=== PATIENT | female | born 1980 | race American Indian/Alaskan Native ===

== ENCOUNTER 2016-05-17 13:42 | Emergency (ER) | payer MEDICAID, OTHER ==
[2016-05-17 15:49] VITALS: BP 149/96
[2016-05-17] MEDS ORDERED: Ketorolac 60 MG/2 ML SDV IM ONE (16:09)
[2016-05-17] MEDS ORDERED: LORazepam 2 MG/ML MDV IM ONE (16:09)
--- NOTE | 2016-05-17 16:12 | EDM.PDOC ---
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 which may have exacerbated her back pain.she denies any fevers loss of bowel or bladder - Related Data Allergies/ADRs: Allergies Allergy/AdvReac Type Severity Reaction Status Date / Time codeine phosphate Allergy Swollen Verified 01/12/16 22:00 [From Tylenol-Codeine #3] Eyes Home Meds: Home Meds Ibuprofen 800 mg PO TID 04/06/14 [History] Levothyroxine Sodium [Synthroid] 200 mcg PO DAILY 04/06/14 [History] tiZANidine [Zanaflex] 2 mg PO BEDTIME 04/06/14 [History] traMADol [Ultram] 50 mg PO Q4H PRN 04/06/14 [History] Past Medical History 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 History: Reports: Musculoskeletal History: Reports: Back pain, chronic, Other (see below) Other Musculoskeletal History: dislocated shoulder Neurological History: Reports: Concussion Endocrine/Metabolic History: Reports: Hypothyroidism Oncologic (Cancer) History: Reports: Thyroid - Infectious Disease History Infectious Disease History: Reports: Chicken pox - Past Surgical History Endocrine Surgical History: Reports: Thyroid biopsy, Thyroidectomy Social & Family History - Tobacco Use Smoking Status *Q: Current Every Day Smoker Years of Tobacco use: 10 Packs/Tins Daily: 0.5 Second Hand Smoke Exposure: Yes - Caffeine Use Caffeine Use: Reports: Coffee, Soda - Alcohol Use Days Per Week of Alcohol Use: 0 - Recreational Drug Use Recreational Drug Use: Yes Drug Use in Last 12 Months: Yes Recreational Drug Type: Reports: Marijuana/Hashish Recreational Drug Use Frequency: Weekly Recreational Drug Last Use: couple days ago - Living Situation & Occupation Living situation: Reports: (lives in [place], [place]. with , 3 children, Mom, [id number], and 2 brothers.) ED ROS GENERAL - Review of Systems Review Of Systems: See Below Constitutional: Denies: fever, chills Respiratory: Reports: no symptoms Cardiovascular: Reports: No symptoms GI/Abdominal: Reports: No symptoms Musculoskeletal: Reports: back pain Neurological: Reports: no symptoms ED EXAM,LOWER BACK PAIN/INJURY - Physical Exam Exam: See Below Exam Limited By: No limitations General Appearance: alert, WD/WN, no apparent distress Back Exam: normal inspection, decreased range of motion, muscle spasm, paraspinal tenderness. No: CVA tenderness (R), CVA tenderness (L), vertebral tenderness Extremities: normal inspection, non-tender DTR - Lower Extremities: 2+: knee (R), knee (L) Course - Vital Signs Last Recorded V/S: Last Vital Signs Temp 97.9 F 05/17/16 15:48 Pulse 75 05/17/16 15:48 Resp 18 05/17/16 15:48 BP 149/96 H 05/17/16 15:48 Pulse Ox 97 05/17/16 15:48 - Orders/Labs/Meds Meds: Medications Discontinued Medications Generic Name Dose Route Start Last Admin Trade Name Dulce Maria PRN Reason Stop Dose Admin Hydromorphone HCl 1 mg 05/17/16 17:18 05/17/16 17:31 Dilaudid IM 05/17/16 17:19 1 mg ONETIME ONE Administration Ketorolac Tromethamine 60 mg 05/17/16 16:09 05/17/16 16:33 Toradol IM 05/17/16 16:10 60 mg ONETIME ONE Administration Lorazepam 1 mg 05/17/16 16:09 05/17/16 16:32 Ativan IM 05/17/16 16:10 1 mg ONETIME ONE Administration Departure - Departure Time of Disposition: 18:22 Disposition: Home, Self-Care 01 Condition: good Clinical Impression: Low back pain Qualifiers: Chronicity: chronic Back pain laterality: bilateral Sciatica presence: without sciatica Qualified Code(s): M54.5 - Low back pain; G89.29 - Other chronic pain Forms: ED Department Discharge Additional Instructions: use Percocet as needed for pain control, use Ativan as needed for muscle relaxant, Please followup with your primary care provider in 3-5 days if not better, please call return to the emergency department with worsening of symptoms. - Assessment/Plan Plan: Assessment Acuity = chronic Site and laterality = bilateral low back pain Etiology = unclear etiology Manifestations = none Location of injury = home Lab values = none Plan she had minimal improvement with the Toradol provided significant improvement with IM Dilaudid and Ativan provided, we discharged him with 10 Percocet and 10 ativan Patient was in agreement with the plan all questions were answered, they were instructed to return to the emergency department or call for worsening symptoms. This note was dictated using Lulu voice recognition software please call with any questions.
[2016-05-17] MEDS ORDERED: HYDROmorphone 1 MG/ML Syringe IM ONE (17:18)
== END 2016-05-17 18:40 | disposition home or self-care (01) ==
LOC: JP.ED 13:42
DX: M54.5 Low back pain (principal); G89.29 Other chronic pain; E89.0 Postprocedural hypothyroidism; F17.210 Nicotine dependence, cigarettes, uncomplicated; Z79.899 Other long term (current) drug therapy; Z88.5 Allergy status to narcotic agent; Z85.850 Personal history of malignant neoplasm of thyroid
CPT/HCPCS: 96372; 99283; J1170; J1885; J2060

== ENCOUNTER 2016-08-07 18:48 | Emergency (ER) | payer MEDICAID ==
[2016-08-07 20:01] VITALS: BP 110/72
--- NOTE | 2016-08-07 20:12 | EDM.PDOC ---
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 She thought she might have slept on it incorrectly. Pain and some swelling, especially painful to pronate the hand. Did have some clicking and crepitus earlier. No fall or injury She does do repetitive twisting of the wrist with her job. Reminded her of her wrist pain from a work problem several years ago, she had bilateral wrist braces that she is sleeping with, she could find a right wrist brace but not her left one. She has some pain shooting up into the elbow but to maintain his rate over the left wrist She had a little bit of tingling in a couple of the fingers but that has resolved. left wrist Pain Score (Numeric/FACES): 5 - Related Data Allergies Allergy/AdvReac Type Severity Reaction Status Date / Time codeine phosphate Allergy Swollen Verified 08/07/16 19:52 [From Tylenol-Codeine #3] Eyes Home Meds: Home Meds Ibuprofen 800 mg PO TID 04/06/14 [History] Levothyroxine Sodium [Synthroid] 200 mcg PO DAILY 04/06/14 [History] tiZANidine [Zanaflex] 2 mg PO BEDTIME PRN 04/06/14 [History] Hydrocodone/Acetaminophen [Hydrocodon-Acetaminophen 5-325] 1 - 2 each PO QID PRN #10 tablet 08/07/16 [Rx] Past Medical History HEENT History: Reports: Impaired Vision KIER DRIER History: Reports: Musculoskeletal History: Reports: Back Pain, Chronic Other Musculoskeletal History: dislocated shoulder Neurological History: Reports: Concussion Psychiatric History: Reports: Depression Endocrine/Metabolic History: Reports: Hypothyroidism Oncologic (Cancer) History: Reports: Thyroid - Infectious Disease History Infectious Disease History: Reports: Chicken Pox - Past Surgical History Endocrine Surgical History: Reports: Thyroid Biopsy, Thyroidectomy Social & Family History - Tobacco Use Smoking Status *Q: Current Every Day Smoker Years of Tobacco use: 15 Packs/Tins Daily: 0.5 Second Hand Smoke Exposure: Yes - Caffeine Use Caffeine Use: Reports: Coffee, Soda, Tea - Alcohol Use Days Per Week of Alcohol Use: 0 - Recreational Drug Use Recreational Drug Use: No Drug Use in Last 12 Months: Yes Recreational Drug Type: Reports: Marijuana/Hashish Recreational Drug Use Frequency: Weekly Recreational Drug Last Use: couple days ago - Living Situation & Occupation Living situation: Reports: Review of Systems - Review of Systems Review Of Systems: See Below Constitutional: Reports: No Symptoms Respiratory: Reports: No Symptoms Cardiovascular: Reports: No Symptoms Genitourinary: Reports: No Symptoms Musculoskeletal: Reports: Joint Pain (Left wrist), Joint Swelling (Mild, left wrist), Other (Decreased range of motion left wrist due to pain, some crepitus) Neurological: Reports: Numbness (Very briefly left fingers), Weakness (Left hand because of the pain). Denies: Headache, Difficulty Walking, Change in Speech Psychiatric: Reports: No Symptoms Trauma Exam - Physical Exam Exam: See Below Exam Limited By: No Limitations General Appearance: Reports: Alert, Mild Distress, Other (Normal vital signs) Head: Reports: Atraumatic, Normocephalic Respiratory Exam: Reports: No Respiratory Distress, No Accessory Muscle Use Cardiovascular: Reports: Normal Peripheral Pulses, Regular Rate, Rhythm Extremities: Pain with Movement (Left wrist particularly with supination and even more so pronation, tenderness over the dorsum of the wrist primarily), Tenderness (Left wrist with decreased range of motion mild swelling, no crepitus felt, strength is intact, peripheral capillary refill normal) Neurologic: Reports: No Motor/Sensory Deficits, Alert Skin: Reports: Normal Color, Warm/Dry, Other (No rash) Course - Vital Signs Last Recorded V/S: Last Vital Signs Temp 36.4 C 08/07/16 19:53 Pulse 58 L 08/07/16 19:53 Resp 16 08/07/16 19:53 BP 110/72 08/07/16 19:53 Pulse Ox 97 08/07/16 19:53 - Orders/Labs/Meds Orders: Active Orders 24 hr Category Date Time Status Orthopedic Treatments [RC] ASDIRECTED Care 08/07/16 20:44 Active Wrist Comp Min 3V Lt [CR] Stat Exams 08/07/16 20:06 Taken - Re-Assessments/Exams Free Text/Narrative Re-Assessment/Exam: 08/07/16 20:11 35-year-old female with acute left wrist pain with some swelling Differential diagnoses includes tenosynovitis, tendinitis, carpal tunnel syndrome or other neuropathy, arthritis, and infection. Tenosynovitis is the most likely. X-ray left wrist 08/07/16 20:45 X-rays negative by my interpretation Velcro wrist splint Note for work Prescriptions below She does have ibuprofen 800 mg at home has taken one Departure - Departure Time of Disposition: 20:46 Disposition: Home, Self-Care 01 Condition: good Clinical Impression: Extensor tenosynovitis of left wrist - Discharge Information Prescriptions: Hydrocodone/Acetaminophen [Hydrocodon-Acetaminophen 5-325] 1 - 2 each PO QID PRN #10 tablet PRN Reason: Moderate to severe pain Instructions: Tendinitis and Tenosynovitis-SportsMed Referrals: Caroline Weinberg NP [Primary Care Provider] - Forms: ED Department Discharge, Return to Work/School Form Additional Instructions: Use splint for at least a week, it can be removed for bathing Take ibuprofen 2-3 tablets daily of the 100 mg. He's hydrocodone at nighttime only See your physician/clinic approximately 10 days unless significantly improved - My Orders Last 24 Hours: My Active Orders 08/07/16 20:06 Wrist Comp Min 3V Lt [CR] Stat 08/07/16 20:44 Orthopedic Treatments [RC] ASDIRECTED - Assessment/Plan Last 24 Hours: My Active Orders 08/07/16 20:06 Wrist Comp Min 3V Lt [CR] Stat 08/07/16 20:44 Orthopedic Treatments [RC] ASDIRECTED
--- NOTE | 2016-08-08 08:33 | CR ---
No fracture or dislocation.
== END 2016-08-07 21:08 | disposition home or self-care (01) ==
LOC: JP.ED 18:48
DX: M65.842 Other synovitis and tenosynovitis, left hand (principal); E89.0 Postprocedural hypothyroidism; F32.9 Major depressive disorder, single episode, unspecified; F17.210 Nicotine dependence, cigarettes, uncomplicated; Z79.1 Long term (current) use of non-steroidal anti-inflammatories (NSAID); Z79.899 Other long term (current) drug therapy; Z88.5 Allergy status to narcotic agent; Z85.850 Personal history of malignant neoplasm of thyroid
CPT/HCPCS: 73110-26-LT; 73110-LT; 99284

== ENCOUNTER 2016-08-26 19:54 | Emergency (ER) | payer MEDICAID ==
[2016-08-26 20:29] VITALS: BP 153/99
[2016-08-26] MEDS ORDERED: Ketorolac 60 MG/2 ML SDV IM ONE (21:17)
--- NOTE | 2016-08-26 21:18 | EDM.PDOC ---
ED HPI GENERAL MEDICAL PROBLEM - General Chief Complaint: General Stated Complaint: HIP HURTS NOT AN ACCIDENT Time Seen by Provider: 08/26/16 21:12 Source of Information: Reports: Patient History Limitations: Reports: No Limitations - History of Present Illness INITIAL COMMENTS - FREE TEXT/NARRATIVE: With right hip pain x 3 days. Taking muscle relaxer, heat and Ibuprofen for discomfort. Pain does radiate to mid right calf area. Has been through physical therapy and pain management for ongoing sciatica issues. Last injection in March. Rates pain a 7 at this time. Duration: Intermittent Location: Reports: Lower Extremity, Right, Radiates to (behind knee cap) Quality: Reports: Ache Severity: Mild Improves with: Reports: Medication Worsens with: Reports: Movement Associated Symptoms: Reports: No Other Symptoms Right Hip Pain Score (Numeric/FACES): 8 - Related Data Allergies Allergy/AdvReac Type Severity Reaction Status Date / Time codeine phosphate Allergy Swollen Verified 08/26/16 20:41 [From Tylenol-Codeine #3] Eyes Home Meds: Home Meds Ibuprofen 800 mg PO TID 04/06/14 [History] Levothyroxine Sodium [Synthroid] 200 mcg PO DAILY 04/06/14 [History] tiZANidine [Zanaflex] 2 mg PO BEDTIME PRN 04/06/14 [History] Hydrocodone/Acetaminophen [Hydrocodon-Acetaminophen 5-325] 1 - 2 each PO QID PRN #10 tablet 08/07/16 [Rx] Past Medical History HEENT History: Reports: Impaired Vision [employer]OL[employer] History: Reports: Musculoskeletal History: Reports: Back Pain, Chronic Other Musculoskeletal History: dislocated shoulder Neurological History: Reports: Concussion Psychiatric History: Reports: Depression Endocrine/Metabolic History: Reports: Hypothyroidism Oncologic (Cancer) History: Reports: Thyroid - Infectious Disease History Infectious Disease History: Reports: Chicken Pox - Past Surgical History Endocrine Surgical History: Reports: Thyroid Biopsy, Thyroidectomy Social & Family History - Tobacco Use Smoking Status *Q: Current Every Day Smoker Years of Tobacco use: 11 Packs/Tins Daily: 0.5 Used Tobacco, but Quit: No Second Hand Smoke Exposure: Yes - Caffeine Use Caffeine Use: Reports: Coffee, Soda, Tea - Alcohol Use Days Per Week of Alcohol Use: 0 - Recreational Drug Use Recreational Drug Use: No Drug Use in Last 12 Months: Yes Recreational Drug Type: Reports: Marijuana/Hashish Recreational Drug Use Frequency: Weekly Recreational Drug Last Use: couple days ago - Living Situation & Occupation Living situation: Reports: ED ROS GENERAL - Review of Systems Review Of Systems: See Below Constitutional: Reports: No Symptoms HEENT: Reports: No Symptoms Respiratory: Reports: No Symptoms Cardiovascular: Reports: No Symptoms Endocrine: Reports: No Symptoms Musculoskeletal: Reports: Leg Pain (right hip) Neurological: Reports: No Symptoms ED EXAM, GENERAL - Physical Exam Exam: See Below Exam Limited By: No Limitations General Appearance: Alert, WD/WN, No Apparent Distress Respiratory/Chest: No Respiratory Distress, Lungs Clear, Normal Breath Sounds, No Accessory Muscle Use, Chest Non-Tender Cardiovascular: Normal Peripheral Pulses, Regular Rate, Rhythm, No Edema, No Gallop, No JVD, No Murmur, No Rub Extremities: Normal Inspection, Normal Range of Motion, Non-Tender, Normal Capillary Refill, No Pedal Edema Neurological: Alert, Oriented, CN II-XII Intact, Normal Cognition, Normal Gait, Normal Reflexes, No Motor/Sensory Deficits Psychiatric: Normal Affect, Normal Mood Course - Vital Signs Last Recorded V/S: Last Vital Signs Temp 98.2 F 08/26/16 20:41 Pulse 64 08/26/16 20:41 Resp 20 08/26/16 20:41 BP 153/99 H 08/26/16 20:41 Pulse Ox 98 08/26/16 20:41 Departure - Departure Time of Disposition: 21:19 Disposition: Home, Self-Care 01 Condition: good Clinical Impression: Right hip pain - Discharge Information Forms: ED Department Discharge Additional Instructions: Toradol 60mg IM given today. Pt to continue ice to hip. Note given excusing from work today. Continue stretching. Consider chiropractors and yoga for stretching. Followup if symptoms persist. - Problem List & Annotations (1) Right hip pain SNOMED Code(s): 63345299 Code(s): M25.551 - PAIN IN RIGHT HIP Status: Acute Priority: Low Current Visit: Yes
== END 2016-08-26 21:40 | disposition home or self-care (01) ==
LOC: JP.ED 19:54
DX: M25.551 Pain in right hip (principal); H54.7 Unspecified visual loss; F32.9 Major depressive disorder, single episode, unspecified; E03.9 Hypothyroidism, unspecified; F17.210 Nicotine dependence, cigarettes, uncomplicated; Z79.899 Other long term (current) drug therapy; Z88.5 Allergy status to narcotic agent; Z90.89 Acquired absence of other organs
CPT/HCPCS: 96372; 99283; J1885

== ENCOUNTER 2016-12-14 20:57 | Emergency (ER) | payer MEDICAID ==
[2016-12-14 22:11] VITALS: BP 148/97
[2016-12-14] MEDS ORDERED: Ketorolac 60 MG/2 ML SDV IM ONE (22:36)
--- NOTE | 2016-12-14 22:42 | EDM.PDOC ---
ED HPI GENERAL MEDICAL PROBLEM - General Chief Complaint: Back Pain or Injury Stated Complaint: PAIN NOT AN ACCIDENT Time Seen by Provider: 12/14/16 22:20 Source of Information: Reports: Patient History Limitations: Reports: No Limitations - History of Present Illness INITIAL COMMENTS - FREE TEXT/NARRATIVE: Martine presents tonight with complaints of low back pain after an epidural injection this Saturday. She reports she took her mother shopping at [employer] today and walked around a lot. Onset: Today, Gradual Duration: Hour(s): Location: Reports: Back Quality: Reports: Other (Spasms) Severity: Moderate Improves with: Reports: None Worsens with: Reports: Movement Associated Symptoms: Reports: No Other Symptoms Lower Back Pain Score (Numeric/FACES): 7 - Related Data Allergies Allergy/AdvReac Type Severity Reaction Status Date / Time codeine phosphate Allergy Swollen Verified 08/26/16 20:41 [From Tylenol-Codeine #3] Eyes Home Meds: Home Meds Ibuprofen 800 mg PO TID 04/06/14 [History] Levothyroxine Sodium [Synthroid] 200 mcg PO DAILY 04/06/14 [History] tiZANidine [Zanaflex] 2 mg PO BEDTIME PRN 04/06/14 [History] Past Medical History HEENT History: Reports: Impaired Vision [employer] History: Reports: Musculoskeletal History: Reports: Back Pain, Chronic Other Musculoskeletal History: dislocated shoulder Neurological History: Reports: Concussion Psychiatric History: Reports: Depression Endocrine/Metabolic History: Reports: Hypothyroidism Oncologic (Cancer) History: Reports: Thyroid - Infectious Disease History Infectious Disease History: Reports: Chicken Pox - Past Surgical History Endocrine Surgical History: Reports: Thyroid Biopsy, Thyroidectomy Social & Family History - Family History Family Medical History: Noncontributory - Tobacco Use Smoking Status *Q: Current Every Day Smoker Years of Tobacco use: 10 Packs/Tins Daily: 0.5 Used Tobacco, but Quit: No Second Hand Smoke Exposure: Yes - Caffeine Use Caffeine Use: Reports: Coffee - Alcohol Use Days Per Week of Alcohol Use: 0 Number of Drinks Per Day: 0 Total Drinks Per Week: 0 Date of Last Drink: 11/30/16 - Recreational Drug Use Recreational Drug Use: No Drug Use in Last 12 Months: Yes Recreational Drug Type: Reports: Marijuana/Hashish Recreational Drug Use Frequency: Socially Recreational Drug Last Use: couple days ago - Living Situation & Occupation Living situation: Reports: ED ROS GENERAL - Review of Systems Review Of Systems: See Below Constitutional: Denies: Fever, Chills, Malaise, Weakness, Fatigue Respiratory: Denies: Shortness of Breath, Wheezing, Cough, Sputum, Hemoptysis Cardiovascular: Denies: Chest Pain, Dyspnea on Exertion, Edema, Lightheadedness , Palpitations, PND, Syncope GI/Abdominal: Denies: Abdominal Pain, Black Stool, Bloody Stool, Constipation, Diarrhea, Nausea, Stool Incontinence, Vomiting : Denies: Flank Pain, Frequency, Hematuria, Incontinence, Urgency Musculoskeletal: Reports: Muscle Pain, Muscle Stiffness, Other (Low back pain, muscle spasms) Skin: Reports: No Symptoms Neurological: Denies: Confusion, Dizziness, Headache, Numbness, Paresthesia, Tingling, Tremors, Difficulty Walking, Weakness, Gait Disturbance Psychiatric: Reports: No Symptoms Hematologic/Lymphatic: Reports: No Symptoms Immunologic: Reports: No Symptoms ED EXAM,LOWER BACK PAIN/INJURY - Physical Exam Exam: See Below Text/Narrative:: Martine is an alert, oriented and pleasant 36 year old female presenting with lumbar muscle spasms and pain. Exam Limited By: No Limitations General Appearance: Alert, WD/WN, No Apparent Distress Eye Exam: Bilateral Eye: Normal Fundi, Normal Inspection, PERRL Ears: Normal External Exam, Normal Canal, Hearing Grossly Normal, Normal TMs Nose: Normal Inspection, Normal Mucosa, No Blood Throat/Mouth: Normal Inspection, Normal Lips, Normal Oropharynx, Normal Voice, No Airway Compromise Head: Atraumatic, Normocephalic Neck: Normal Inspection, Supple, Non-Tender, Full Range of Motion. No: Lymphadenopathy (R), Lymphadenopathy (L) Respiratory/Chest: No Respiratory Distress, Lungs Clear, Normal Breath Sounds, No Accessory Muscle Use, Chest Non-Tender Cardiovascular: Normal Peripheral Pulses, Regular Rate, Rhythm, No Edema, No Murmur, No Rub GI/Abdominal: Normal Bowel Sounds, Soft, Non-Tender, No Distention, No Mass Back Exam: Normal Inspection, Full Range of Motion, Decreased Range of Motion, Muscle Spasm. No: CVA Tenderness (R), CVA Tenderness (L), Paraspinal Tenderness , Vertebral Tenderness Extremities: Normal Inspection, Normal Range of Motion, Non-Tender, No Pedal Edema, Normal Capillary Refill Neurological: Alert, Normal Mood/Affect, Normal Dorsiflexion, CN II-XII Intact, Normal Plantar Flexion, Normal Gait, Normal Reflexes, No Motor/Sensory Deficits , Oriented x 3 DTR - Lower Extremities: 1+: Knee (R), Knee (L), Ankle (R), Ankle (L) Psychiatric: Normal Affect, Normal Mood Skin Exam: Warm, Dry, Intact, Normal Color, No Rash Lymphatic: No Adenopathy Course - Vital Signs Last Recorded V/S: Last Vital Signs Temp 36.2 C 12/14/16 22:16 Pulse 74 12/14/16 22:16 Resp 18 12/14/16 22:16 BP 148/97 H 12/14/16 22:16 Pulse Ox 97 12/14/16 22:16 - Orders/Labs/Meds Meds: Medications Discontinued Medications Generic Name Dose Route Start Last Admin Trade Name Dulce Maria PRN Reason Stop Dose Admin Ketorolac Tromethamine 60 mg 12/14/16 22:36 12/14/16 22:43 Toradol IM 12/14/16 22:37 60 mg ONETIME ONE Administration - Re-Assessments/Exams Free Text/Narrative Re-Assessment/Exam: 12/14/16 22:[address] Romero, he agrees with plan. Departure - Departure Time of Disposition: 22:46 Disposition: Home, Self-Care 01 Condition: Good Clinical Impression: Back muscle spasm - Discharge Information Instructions: Muscle Cramps and Spasms, [id number] Referrals: Caroline Weinberg NP [Primary Care Provider] - Forms: ED Department Discharge Additional Instructions: You are suffering from low back muscle spasms. It is best for you to go home, rest and take your muscle relaxant. You were given an IM injection of toradol tonight to assist with pain. Do not take any ibuprofen tonight. Return for worsening, issues or concerns. - Assessment/Plan Assessment:: Back muscle spasms Status post epidural injections 2 days ago Plan: Patient suffering from low back muscle spasms. Go home, rest and take muscle relaxant. She was given an IM injection of toradol tonight to assist with pain and instructed not take any ibuprofen tonight. Return for worsening, issues or concerns.
== END 2016-12-14 22:56 | disposition home or self-care (01) ==
LOC: JP.ED 20:57
DX: M62.830 Muscle spasm of back (principal); E03.9 Hypothyroidism, unspecified; F17.210 Nicotine dependence, cigarettes, uncomplicated; Z79.899 Other long term (current) drug therapy; Z88.5 Allergy status to narcotic agent; Z98.890 Other specified postprocedural states
CPT/HCPCS: 96372; 99283; J1885

== ENCOUNTER 2017-03-01 17:06 | Emergency (ER) | payer MEDICAID ==
[2017-03-01 17:40] VITALS: BP 134/77
[2017-03-01] MEDS ORDERED: Ketorolac 60 MG/2 ML SDV IM ONE (17:56)
--- NOTE | 2017-03-01 18:00 | EDM.PDOC ---
ED HPI GENERAL MEDICAL PROBLEM - General Chief Complaint: Lower Extremity Injury/Pain Stated Complaint: HURT RT KNEE Time Seen by Provider: 03/01/17 17:51 Source of Information: Reports: Patient, RN Notes Reviewed History Limitations: Reports: No Limitations - History of Present Illness INITIAL COMMENTS - FREE TEXT/NARRATIVE: 36-year-old female presents to emergency department today complaint of right knee pain, she has been dealing with sciatica on her left hip and admits to ambulating differently, she was going down the steps today inadvertently twisted her right knee her to pop and now she has difficulty bearing weight on that knee - Related Data Allergies Allergy/AdvReac Type Severity Reaction Status Date / Time codeine phosphate Allergy Swollen Verified 08/26/16 20:41 [From Tylenol-Codeine #3] Eyes Home Meds: Home Meds Ibuprofen 800 mg PO TID 04/06/14 [History] Levothyroxine Sodium [Synthroid] 200 mcg PO DAILY 04/06/14 [History] tiZANidine [Zanaflex] 2 mg PO BEDTIME PRN 04/06/14 [History] Past Medical History HEENT History: Reports: Impaired 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: Musculoskeletal History: Reports: Back Pain, Chronic Other Musculoskeletal History: dislocated shoulder Neurological History: Reports: Concussion Psychiatric History: Reports: Depression Endocrine/Metabolic History: Reports: Hypothyroidism Oncologic (Cancer) History: Reports: Thyroid - Infectious Disease History Infectious Disease History: Reports: Chicken Pox - Past Surgical History Endocrine Surgical History: Reports: Thyroid Biopsy, Thyroidectomy Social & Family History - Family History Family Medical History: Noncontributory - Tobacco Use Smoking Status *Q: Current Every Day Smoker Years of Tobacco use: 11 Packs/Tins Daily: 0.5 Used Tobacco, but Quit: No Second Hand Smoke Exposure: Yes - Caffeine Use Caffeine Use: Reports: Coffee - Alcohol Use Days Per Week of Alcohol Use: 0 Number of Drinks Per Day: 0 Total Drinks Per Week: 0 - Recreational Drug Use Recreational Drug Use: No Drug Use in Last 12 Months: Yes Recreational Drug Type: Reports: Marijuana/Hashish Recreational Drug Use Frequency: Socially Recreational Drug Last Use: couple days ago - Living Situation & Occupation Living situation: Reports: Review of Systems - Review of Systems Review Of Systems: See Below Musculoskeletal: Reports: Joint Pain (Right knee pain) Skin: Reports: No Symptoms Neurological: Reports: No Symptoms ED EXAM, GENERAL - Physical Exam Exam: See Below Free Text/Narrative:: Examination of the right knee I don't appreciate any erythema there is no edema noted she is tender along the medial aspect joint line will not tolerate Abbasi valgus maneuvers or Lockman so therefore exam is limited she has difficulty ambulating favors the left leg Exam Limited By: No Limitations General Appearance: Alert, WD/WN, No Apparent Distress Respiratory/Chest: No Respiratory Distress Course - Vital Signs Last Recorded V/S: Last Vital Signs Temp 98.2 F 03/01/17 17:45 Pulse 69 03/01/17 17:45 Resp 16 03/01/17 17:45 BP 134/77 03/01/17 17:45 Pulse Ox 96 03/01/17 17:45 - Orders/Labs/Meds Orders: Active Orders 24 hr Category Date Time Status Knee 3V Rt [CR] Stat Exams 03/01/17 18:11 Taken DME for Discharge [COMM] Per Unit Routine Oth 03/01/17 19:05 Ordered Meds: Medications Discontinued Medications Generic Name Dose Route Start Last Admin Trade Name Dulce Maria PRN Reason Stop Dose Admin Ketorolac Tromethamine 60 mg 03/01/17 17:56 03/01/17 18:46 Toradol IM 03/01/17 17:57 60 mg ONETIME ONE Administration Departure - Departure Time of Disposition: 19:08 Disposition: Home, Self-Care 01 Condition: Fair Clinical Impression: Right knee pain Qualifiers: Chronicity: acute Qualified Code(s): M25.561 - Pain in right knee - Discharge Information Referrals: Caroline Weinberg NP [Primary Care Provider] - Forms: ED Department Discharge Additional Instructions: Use hydrocodone as needed for pain control in combination with ibuprofen, Please followup with your primary care provider in 3-5 days if not better, please call return to the emergency department with worsening of symptoms. - My Orders Last 24 Hours: My Active Orders 03/01/17 18:11 Knee 3V Rt [CR] Stat 03/01/17 19:05 DME for Discharge [COMM] Per Unit Routine - Assessment/Plan Last 24 Hours: My Active Orders 03/01/17 18:11 Knee 3V Rt [CR] Stat 03/01/17 19:05 DME for Discharge [COMM] Per Unit Routine Plan: Assessment Acuity = acute Site and laterality = right knee strain Etiology = secondary to twisting injury Manifestations = none Location of injury = Home Lab values = x-ray the right knee I did review films myself I cannot appreciate any acute process, the official read from radiology is pending Plan I reviewed films with her she received no relief from the Toradol injection she is placed in a knee immobilizer and crutches provided hydrocodone 1 tablet by mouth 3 times a day when necessary total #8 she is to follow-up with her primary care provider in the next 3-5 days for reevaluation Patient was in agreement with the plan all questions were answered, they were instructed to return to the emergency department or call for worsening symptoms. This note was dictated using [employer] voice recognition software please call with any questions.
--- NOTE | 2017-03-04 08:33 | CR ---
Knee 3V Rt HISTORY: pain, twist FINDINGS: No acute fracture or dislocation is identified. Bony architecture and joint spaces are preserved. S oft tissues are unremarkable. IMPRESSION: No acute right knee abnormality identified.
== END 2017-03-01 19:39 | disposition home or self-care (01) ==
LOC: JP.ED 17:06
DX: M25.561 Pain in right knee (principal); F17.210 Nicotine dependence, cigarettes, uncomplicated; Z88.5 Allergy status to narcotic agent; Z79.899 Other long term (current) drug therapy
CPT/HCPCS: 73562; 96372; 99284; J1885

== ENCOUNTER 2017-07-09 19:20 | Emergency (ER) | payer MEDICAID ==
[2017-07-09 19:31] VITALS: BP 149/95
[2017-07-09] MEDS: Ketorolac 60 MG/2 ML SDV IM ONE (20:48)
[2017-07-09] MEDS: methylPREDNISolone Sodium Succinate 125 MG/2 ML SDV IVPUSH ONE (20:49)
--- NOTE | 2017-07-09 20:56 | EDM.PDOC ---
ED HPI GENERAL MEDICAL PROBLEM - General Chief Complaint: Respiratory Problem Stated Complaint: MEDICAL VIA [place]TH Time Seen by Provider: 07/09/17 20:05 Source of Information: Reports: Patient, RN History Limitations: Reports: No Limitations - History of Present Illness INITIAL COMMENTS - FREE TEXT/NARRATIVE: Shortness of breath with near fainting; this is a 36 year old female arrives via EMS from [facility]. 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 EMS were called, she was given a nebulizer treatment enroute to ER, which greatly improved here breathing and chest discomfort. shortness of breath resolved has concerns of sore throat, cough, may have a bladder infection, also a flare up of chronic low back pain with sciatica. has had upper respiratory symptoms for the past 1-2 weeks. 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 Treatments (given by EMS) sore throat Pain Score (Numeric/FACES): 7 chest tightness Pain Score (Numeric/FACES): 9 - Related Data Allergies Allergy/AdvReac Type Severity Reaction Status Date / Time codeine phosphate Allergy Swollen Verified 07/09/17 19:30 [From Tylenol-Codeine #3] Eyes Home Meds: Home Meds Ibuprofen 800 mg PO TID PRN 04/06/14 [History] Levothyroxine Sodium [Synthroid] 200 mcg PO DAILY 04/06/14 [History] tiZANidine [Zanaflex] 2 mg PO BEDTIME PRN 04/06/14 [History] Nabumetone [Relafen] 500 mg PO BID PRN 07/09/17 [History] Past Medical History HEENT History: Reports: Impaired Vision 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: Musculoskeletal History: Reports: Back Pain, Chronic Other Musculoskeletal History: dislocated shoulder Neurological History: Reports: Concussion Psychiatric History: Reports: Depression Endocrine/Metabolic History: Reports: Hypothyroidism Oncologic (Cancer) History: Reports: Thyroid - Infectious Disease History Infectious Disease History: Reports: Chicken Pox - Past Surgical History Endocrine Surgical History: Reports: Thyroid Biopsy, Thyroidectomy Social & Family History - Family History Family Medical History: Noncontributory - Tobacco Use Smoking Status *Q: Current Every Day Smoker Years of Tobacco use: 15 Packs/Tins Daily: 0.5 Used Tobacco, but Quit: No Second Hand Smoke Exposure: Yes - Caffeine Use Caffeine Use: Reports: Coffee, Energy Drinks, Soda, Tea - Alcohol Use Days Per Week of Alcohol Use: 0 Number of Drinks Per Day: 0 Total Drinks Per Week: 0 - Recreational Drug Use Recreational Drug Use: Yes Drug Use in Last 12 Months: Yes Recreational Drug Type: Reports: Marijuana/Hashish Recreational Drug Use Frequency: Rarely Recreational Drug Last Use: couple days ago - Living Situation & Occupation Living situation: Reports: , with Family (lives in housing behind the [employer]) Occupation: Employed ([employer]) ED ROS GENERAL - Review of Systems Review Of Systems: See Below Constitutional: Reports: Fever, Fatigue HEENT: Reports: Sinus Problem, Throat Pain Respiratory: Reports: Shortness of Breath, Wheezing, Pleuritic Chest Pain, Cough , Sputum (green) Cardiovascular: Reports: No Symptoms Endocrine: Reports: No Symptoms GI/Abdominal: Reports: Abdominal Pain (lower abdominal pain, concerns of UTI) : Reports: Flank Pain Musculoskeletal: Reports: Back Pain (chronic) Skin: Reports: No Symptoms Neurological: Reports: No Symptoms Psychiatric: Reports: No Symptoms Hematologic/Lymphatic: Reports: No Symptoms Immunologic: Reports: No Symptoms ED EXAM, GENERAL - Physical Exam Exam: See Below Exam Limited By: No Limitations General Appearance: Alert, WD/WN, No Apparent Distress Eye Exam: Bilateral Eye: Normal Inspection Ears: Normal External Exam, Normal Canal, Hearing Grossly Normal, Normal TMs Ear Exam: Bilateral Ear: Auricle Normal, Canal Normal, TM normal Nose: Normal Inspection, Normal Mucosa, No Blood Throat/Mouth: Normal Lips, Normal Teeth, Normal Gums, Inflammation (tonsillar, uvula midline) Head: Atraumatic, Normocephalic Neck: Normal Inspection, Supple, Non-Tender, Full Range of Motion Respiratory/Chest: No Respiratory Distress, No Accessory Muscle Use, Wheezing Cardiovascular: Regular Rate, Rhythm, No Edema, No Murmur GI/Abdominal: Normal Bowel Sounds, Soft, Tender (low pelvis) Back Exam: Muscle Spasm Extremities: Normal Inspection, No Pedal Edema, Normal Capillary Refill Neurological: No Motor/Sensory Deficits Psychiatric: Normal Affect, Normal Mood Skin Exam: Warm, Dry, Intact, Normal Color, No Rash Lymphatic: No Adenopathy Course - Vital Signs Last Recorded V/S: Last Vital Signs Temp 35.4 C 07/09/17 19:42 Pulse 77 07/09/17 19:42 Resp 16 07/09/17 19:42 BP 149/95 H 07/09/17 19:42 Pulse Ox 96 07/09/17 19:42 - Orders/Labs/Meds Orders: Active Orders 24 hr Category Date Time Status CULTURE STREP A CONFIRMATION [] Stat Lab 07/09/17 20:34 Results STREP SCRN A RAPID W CULT CONF [RM] Stat Lab 07/09/17 20:31 Ordered UA W/MICROSCOPIC [URIN] Stat Lab 07/09/17 20:31 Ordered Labs: Laboratory Tests 07/09/17 Range/Units 20:36 Urine Color Yellow Urine Appearance Clear Urine pH 7.0 (4.5-8.0) Ur Specific Sod 1.015 (1.008-1.030) Urine Protein Negative (NEGATIVE) mg/dL Urine Glucose (UA) Normal (NEGATIVE) mg/dL Urine Ketones Negative (NEGATIVE) mg/dL Urine Occult Blood Negative (NEGATIVE) Urine Nitrite Negative (NEGATIVE) Urine Bilirubin Negative (NEGATIVE) Urine Urobilinogen Normal (NORMAL) mg/dL Ur Leukocyte Esterase Negative (NEGATIVE) Urine RBC Not seen (0-5) Urine WBC 0-5 (0-5) Ur Epithelial Cells Moderate Amorphous Sediment Not seen Urine Bacteria Moderate Urine Mucus Few Meds: Medications Discontinued Medications Generic Name Dose Route Start Last Admin Trade Name Freq PRN Reason Stop Dose Admin Ketorolac Tromethamine 60 mg 07/09/17 20:32 07/09/17 20:48 Toradol IM 07/09/17 20:33 60 mg ONETIME ONE Administration Methylprednisolone Sodium Succinate 125 mg 07/09/17 20:33 07/09/17 20:49 Solu-Medrol IVPUSH 07/09/17 20:34 125 mg ONETIME ONE Administration - Re-Assessments/Exams Free Text/Narrative Re-Assessment/Exam: 07/09/17 21:01 respiratory infection -IV solumedrol 125mg once acute and chronic low back pain -Toradol 60mg IM rule out UTI -urine pending urine negative leukocytes, ketones, positive WBC, many bacteria rule out strep -rapid strep pending. 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 follow up with Primary Care Provider for recheck in one week, sooner if symptoms worsen. 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 follow up with Primary Care Provider for recheck in one week, sooner if symptoms worsen. - Problem List & Annotations (1) Back muscle spasm SNOMED Code(s): 026564470 Code(s): M62.830 - MUSCLE SPASM OF BACK Status: Acute Priority: Medium Current Visit: Yes (2) Bronchitis SNOMED Code(s): 45127611 Code(s): J40 - BRONCHITIS, NOT SPECIFIED ACUTE OR CHRONIC Status: Acute Priority: Medium Current Visit: Yes (3) Dysuria SNOMED Code(s): 60716940 Code(s): R30.0 - DYSURIA Status: Acute Priority: Medium Current Visit: Yes - Problem List Review Problem List Initiated/Reviewed/Updated: Yes - My Orders Last 24 Hours: My Active Orders 07/09/17 20:31 STREP SCRN A RAPID W CULT CONF [RM] Stat UA W/MICROSCOPIC [URIN] Stat 07/09/17 20:34 CULTURE STREP A CONFIRMATION [RM] Stat - Assessment/Plan Last 24 Hours: My Active Orders 07/09/17 20:31 STREP SCRN A RAPID W CULT CONF [RM] Stat UA W/MICROSCOPIC [URIN] Stat 07/09/17 20:34 CULTURE STREP A CONFIRMATION [RM] Stat Plan: will discharge to home, 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 follow up with Primary Care Provider for recheck in one week, sooner if symptoms worsen.
== END 2017-07-09 21:30 | disposition home or self-care (01) ==
LOC: JP.ED 19:20
DX: J40 Bronchitis, not specified as acute or chronic (principal); M62.830 Muscle spasm of back; F17.210 Nicotine dependence, cigarettes, uncomplicated; Z88.5 Allergy status to narcotic agent; Z79.899 Other long term (current) drug therapy
CPT/HCPCS: 81001; 87081; 87430; 96372; 96374; 99285; J1885; J2930

== ENCOUNTER 2017-10-25 07:16 | Emergency (ER) | payer MEDICAID ==
[2017-10-25 07:37] VITALS: BP 149/99
--- NOTE | 2017-10-25 07:39 | EDM.PDOC ---
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 has had problems of numbness on and off for several years but never lasting this long this particular event has been going on for 5 days she has had some pain shooting up her left arm as well denies any trauma Left Hand Pain Score (Numeric/FACES): 7 - Related Data Allergies Allergy/AdvReac Type Severity Reaction Status Date / Time codeine phosphate Allergy Swollen Verified 10/25/17 07:26 [From Tylenol-Codeine #3] Eyes Home Meds: Home Meds Ibuprofen 800 mg PO TID PRN 04/06/14 [History] Levothyroxine Sodium [Synthroid] 200 mcg PO DAILY 04/06/14 [History] tiZANidine [Zanaflex] 2 mg PO BEDTIME PRN 04/06/14 [History] Nabumetone [Relafen] 500 mg PO BID PRN 07/09/17 [History] Past Medical History HEENT History: Reports: Impaired Vision 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 History: Reports: GERD 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: Musculoskeletal History: Reports: Back Pain, Chronic Other Musculoskeletal History: dislocated shoulder Neurological History: Reports: Concussion Psychiatric History: Reports: Depression Endocrine/Metabolic History: Reports: Hypothyroidism, Obesity/BMI 30+ Oncologic (Cancer) History: Reports: Thyroid - Infectious Disease History Infectious Disease History: Reports: Chicken Pox - Past Surgical History Endocrine Surgical History: Reports: Thyroid Biopsy, Thyroidectomy Social & Family History - Family History Family Medical History: Noncontributory - Tobacco Use Smoking Status *Q: Current Every Day Smoker Years of Tobacco use: 20 Packs/Tins Daily: 0.5 - Caffeine Use Caffeine Use: Reports: Coffee - Recreational Drug Use Recreational Drug Use: Yes Drug Use in Last 12 Months: Yes Recreational Drug Type: Reports: Marijuana/Hashish Recreational Drug Use Frequency: Socially - Living Situation & Occupation Living situation: Reports: , with Family (lives in housing behind the [employer]) Occupation: Employed ([employer]) ED ROS GENERAL - Review of Systems Review Of Systems: See Below Constitutional: Reports: No Symptoms Musculoskeletal: Reports: Hand Pain Skin: Reports: No Symptoms Neurological: Reports: Numbness ED EXAM, GENERAL - Physical Exam Exam: See Below Free Text/Narrative:: Examination left arm she has full range of motion of all digits full range of motion of elbow and wrist there is no specific point tenderness, Deandre's test is negative, Tinel's test is negative Phalen's test negative, complains of numbness and pain in the ulnar distribution Exam Limited By: No Limitations General Appearance: Alert, WD/WN, No Apparent Distress Course - Vital Signs Last Recorded V/S: Last Vital Signs Temp 97.3 F 10/25/17 07:29 Pulse 87 10/25/17 07:29 Resp 18 10/25/17 07:29 BP 149/99 H 10/25/17 07:29 Pulse Ox 97 10/25/17 07:29 Departure - Departure Time of Disposition: 08:01 Disposition: Home, Self-Care 01 Condition: Fair Clinical Impression: Cubital tunnel syndrome on left - Discharge Information Referrals: Caroline Weinberg NP [Primary Care Provider] - Forms: ED Department Discharge, ED Return to Work/School Form - Assessment/Plan Plan: Assessment Acuity = acute Site and laterality = probable cubital tunnel syndrome Etiology = probable repetitive motion injury Manifestations = numbness tingling Location of injury = Home Lab values = none Plan Consultations set up with orthopedic surgery for further evaluation she is placed in a wrist splint with thumb immobilization as well as Zhou wrap around the elbow This note was dictated using [employer]Clipper voice recognition software please call with any questions on syntax or grammar.
== END 2017-10-25 08:24 | disposition home or self-care (01) ==
LOC: JP.ED 07:16
DX: G56.22 Lesion of ulnar nerve, left upper limb (principal); F17.210 Nicotine dependence, cigarettes, uncomplicated; Z88.5 Allergy status to narcotic agent; Z79.899 Other long term (current) drug therapy
CPT/HCPCS: 99283

== ENCOUNTER 2017-11-08 15:32 | Emergency (ER) | payer MEDICAID ==
[2017-11-08 15:47] VITALS: BP 152/103
[2017-11-08] MEDS ORDERED: HYDROmorphone 1 MG/ML Syringe IM ONE (16:01)
--- NOTE | 2017-11-08 16:03 | EDM.PDOC ---
ED HPI GENERAL MEDICAL PROBLEM - General Chief Complaint: Upper Extremity Injury/Pain Stated Complaint: HAND TO SHOULDER NOT AN ACCIDENT Time Seen by Provider: 11/08/17 16:00 Source of Information: Reports: Patient History Limitations: Reports: No Limitations - History of Present Illness INITIAL COMMENTS - FREE TEXT/NARRATIVE: Martine 37-year-old female, history of cubital tunnel syndrome, on gabapentin presents to the emergency department today with worsening left arm pain that extends across her back into her right shoulder since having EMG testing her neurology clinic on Saturday. Patient just finished a course of prednisone 2 days ago as well. Patient has been taking ibuprofen for her pain. Patient denies any chest pain, shortness breath, fever, chills, nausea, vomiting or any recent trauma. Onset: Gradual Duration: Day(s): (3) Left Arm Pain Score (Numeric/FACES): 10 - Related Data Allergies Allergy/AdvReac Type Severity Reaction Status Date / Time codeine phosphate Allergy Swollen Verified 11/08/17 15:52 [From Tylenol-Codeine #3] Eyes Home Meds: Home Meds Ibuprofen 800 mg PO TID PRN 04/06/14 [History] Levothyroxine Sodium [Synthroid] 200 mcg PO DAILY 04/06/14 [History] tiZANidine [Zanaflex] 2 mg PO BEDTIME PRN 04/06/14 [History] Nabumetone [Relafen] 500 mg PO BID PRN 07/09/17 [History] Past Medical History HEENT History: Reports: Impaired Vision 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 History: Reports: GERD 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: Musculoskeletal History: Reports: Back Pain, Chronic Other Musculoskeletal History: dislocated shoulder Neurological History: Reports: Concussion Psychiatric History: Reports: Depression Endocrine/Metabolic History: Reports: Hypothyroidism, Obesity/BMI 30+ Oncologic (Cancer) History: Reports: Thyroid - Infectious Disease History Infectious Disease History: Reports: Chicken Pox - Past Surgical History Endocrine Surgical History: Reports: Thyroid Biopsy, Thyroidectomy Social & Family History - Family History Family Medical History: Noncontributory - Tobacco Use Smoking Status *Q: Light Tobacco Smoker Years of Tobacco use: 10 Packs/Tins Daily: 0.5 - Caffeine Use Caffeine Use: Reports: Coffee - Recreational Drug Use Recreational Drug Use: No - Living Situation & Occupation Living situation: Reports: , with Family (lives in housing behind the [employer]) Occupation: Employed ([employer]) Review of Systems - Review of Systems Review Of Systems: ROS reveals no pertinent complaints other than HPI. ED EXAM, GENERAL - Physical Exam Exam: See Below Exam Limited By: No Limitations General Appearance: Alert, WD/WN, No Apparent Distress Neck: Normal Inspection Respiratory/Chest: No Respiratory Distress, Lungs Clear Cardiovascular: Normal Peripheral Pulses, Regular Rate, Rhythm, No Murmur Peripheral Pulses: 2+: Radial (L), Radial (R) Extremities: Normal Inspection, Limited Range of Motion (Limited range of motion to left arm with increased pain with any lifting of arm past her chest, no rashes, no signs of infection, capillary refill and distal proximal pulses are intact.), Other (Tenderness to left and right trapezius muscle region) Neurological: Alert, Oriented, CN II-XII Intact Psychiatric: Normal Affect, Normal Mood Skin Exam: Warm, Dry, Intact Course - Vital Signs Last Recorded V/S: Last Vital Signs Temp 36.3 C 11/08/17 15:50 Pulse 84 11/08/17 15:50 Resp 16 11/08/17 15:50 BP 152/103 H 11/08/17 15:50 Pulse Ox 99 11/08/17 15:50 Martine 37-year-old female, history of juvenile tunnel syndrome who presents to the emergency department today with worsening left arm pain after having EMG/ neurology testing done of her left arm on Saturday. Please refer to history of present illness and focused exam. Patient arrives here hypertensive is otherwise hemolytically stable. Patient has limited range of motion to her left arm. Patient recently finished a course of prednisone which may also be playing a role in her symptoms as this may be rebound inflammation. I did check patient' s narcotic use on the [place] prescription monitoring program, she has not had any narcotics prescribed since last year. I will send her home with a small supply of [place] as this has worked well for her in the past. I did inform patient that any further narcotics for her arm pain we need to be prescribed by either her neurologist or her primary care provider. Patient was given an injection of Dilaudid here prior to discharge without any adverse effects. Reasons to return to the emergency department were discussed in detail. Patient was agreeable to plan of care and discharged in stable condition with her friend driving. - Orders/Labs/Meds Meds: Medications Discontinued Medications Generic Name Dose Route Start Last Admin Trade Name Dulce Maria PRN Reason Stop Dose Admin Hydromorphone HCl 1 mg 11/08/17 16:01 Dilaudid IM 11/08/17 16:02 ONETIME ONE Departure - Departure Time of Disposition: 16:30 Disposition: Home, Self-Care 01 Condition: Good Clinical Impression: Cubital tunnel syndrome on left Arm pain Qualifiers: Laterality: bilateral Qualified Code(s): M79.601 - Pain in right arm; M79.602 - Pain in left arm - Discharge Information Instructions: Shoulder Pain, Musculoskeletal Pain, Heat Therapy Referrals: Caroline Weinberg NP [Primary Care Provider] - Forms: ED Department Discharge Additional Instructions: Continue taking ibuprofen, 600 mg every 6 hours. You can take the [place] as needed for severe pain. Do not drive or drink alcohol if you take this. Follow-up with neurology on Saturday. Any further pain medications will need to be prescribed by your neurologist or primary care provider. As we discussed, you may need another course of steroids if your symptoms do not improve.
== END 2017-11-08 16:32 | disposition home or self-care (01) ==
LOC: JP.ED 15:32
DX: G56.22 Lesion of ulnar nerve, left upper limb (principal); E66.9 Obesity, unspecified; E03.9 Hypothyroidism, unspecified; F17.210 Nicotine dependence, cigarettes, uncomplicated; Z88.5 Allergy status to narcotic agent; Z79.899 Other long term (current) drug therapy
CPT/HCPCS: 96372; 99283; J1170

== ENCOUNTER 2018-05-19 23:51 | Emergency (ER) | payer MEDICAID ==
[2018-05-20 00:14] VITALS: BP 145/101
[2018-05-20] MEDS ORDERED: Benzonatate 100 MG Cap PO ONE (00:25)
[2018-05-20] MEDS ORDERED: Ketorolac 60 MG/2 ML SDV IM ONE (00:25)
--- NOTE | 2018-05-20 00:30 | EDM.PDOC ---
ED HPI GENERAL MEDICAL PROBLEM - General Chief Complaint: Respiratory Problem Stated Complaint: SCIATIC NERVE PAIN, WHEEZING,COUGH Time Seen by Provider: 05/20/18 00:15 Source of Information: Reports: Patient, Old Records, RN History Limitations: Reports: No Limitations - History of Present Illness INITIAL COMMENTS - FREE TEXT/NARRATIVE: 37 yo female here with a cough and rhinorrhea. No SOB or fever. Is a smoker. Also mentions that her chronic sciatica is worse, has restrictions to who she can see due to a pHx of narcotic abuse. Onset: Gradual Onset Date: 05/19/18 Duration: Day(s): (1), Constant Location: Reports: Face (rhinorrhea), Chest (cough) Quality: Reports: Other (no pain except from her sciatica) Severity: Moderate Improves with: Reports: Medication (sciatica) Worsens with: Reports: Other (unknown) Context: Reports: Other (see HPI) Associated Symptoms: Reports: Cough. 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 carpal tunnel left Neurological History: Reports: Concussion Psychiatric History: Reports: Depression Endocrine/Metabolic History: Reports: Hypothyroidism, Obesity/BMI 30+ Oncologic (Cancer) History: Reports: Thyroid - Infectious Disease History Infectious Disease History: Reports: Chicken Pox - Past Surgical History Endocrine Surgical History: Reports: Thyroid Biopsy, Thyroidectomy Social & Family History - Family History Family Medical History: Noncontributory - Tobacco Use Smoking Status *Q: Light Tobacco Smoker Years of Tobacco use: 15 Packs/Tins Daily: 0.5 - Caffeine Use Caffeine Use: Reports: Coffee, Soda, Tea - Recreational Drug Use Recreational Drug Use: No - Living Situation & Occupation Living situation: Reports: , with Family (lives in housing behind the [facility]) Occupation: Employed ([employer]) ED ROS GENERAL - Review of Systems Review Of Systems: See Below Constitutional: Reports: No Symptoms HEENT: Reports: Rhinitis. Denies: Ear Pain, Throat Pain Respiratory: Reports: Cough. Denies: Shortness of Breath, Wheezing, Pleuritic Chest Pain, Sputum, Hemoptysis Cardiovascular: Reports: No Symptoms GI/Abdominal: Reports: No Symptoms : Reports: No Symptoms Musculoskeletal: Reports: No Symptoms Skin: Reports: No Symptoms Neurological: Reports: Other (sciatica, acute on chronic) ED EXAM, GENERAL - Physical Exam Exam: See Below Exam Limited By: No Limitations General Appearance: Alert, WD/WN, No Apparent Distress Eye Exam: Bilateral Eye: Normal Inspection Ears: Normal External Exam, Normal Canal, Hearing Grossly Normal, Normal TMs Ear Exam: Bilateral Ear: Auricle Normal, Canal Normal, TM normal Nose: No Blood, Clear Rhinorrhea Throat/Mouth: Normal Inspection, Normal Lips, Normal Oropharynx, Normal Voice, No Airway Compromise Head: Atraumatic, Normocephalic Neck: Normal Inspection, Supple, Non-Tender. No: Lymphadenopathy (R), Lymphadenopathy (L) Respiratory/Chest: No Respiratory Distress, Lungs Clear, Normal Breath Sounds, No Accessory Muscle Use Cardiovascular: Regular Rate, Rhythm, No Edema GI/Abdominal: Normal Bowel Sounds, Soft, Non-Tender, No Distention Back Exam: Normal Inspection. No: CVA Tenderness (R), CVA Tenderness (L) Extremities: Normal Inspection, Normal Range of Motion, Non-Tender, No Pedal Edema Neurological: Alert, Oriented, CN II-XII Intact, Normal Cognition, No Motor/ Sensory Deficits Psychiatric: Normal Affect, Normal Mood Skin Exam: Warm, Dry, Intact, Normal Color, No Rash Course - Vital Signs Last Recorded V/S: Last Vital Signs Temp 35.5 C 05/20/18 00:13 Pulse 76 05/20/18 00:13 Resp 18 05/20/18 00:13 BP 145/101 H 05/20/18 00:13 Pulse Ox 98 05/20/18 00:13 - Orders/Labs/Meds Orders: Active Orders 24 hr Category Date Time Status Benzonatate [Tessalon Perles] Med 05/20/18 00:25 Once 200 mg PO ONETIME ONE Ketorolac [Toradol] Med 05/20/18 00:25 Once 60 mg IM ONETIME ONE Departure - Departure Time of Disposition: 00:40 Disposition: Home, Self-Care 01 Condition: Good Clinical Impression: Viral URI with cough Chronic sciatica Qualifiers: Laterality: unspecified laterality Qualified Code(s): M54.30 - Sciatica, unspecified side - Discharge Information *PRESCRIPTION DRUG MONITORING PROGRAM REVIEWED*: No *COPY OF PRESCRIPTION DRUG MONITORING REPORT IN PATIENT YANE: No Instructions: Upper Respiratory Infection, Adult, [id number] Referrals: PCP,None [Primary Care Provider] - Additional Instructions: Use Tessalon perles as directed, may add Robitussin DM or Delsym as needed for further cough reduction. Use acetaminophen for pain relief. Continue home meds. No smoking. Drink ample fluids. F/U with your doctor in the clinic as needed. - My Orders Last 24 Hours: My Active Orders 05/20/18 00:25 Benzonatate [Tessalon Perles] 200 mg PO ONETIME ONE Ketorolac [Toradol] 60 mg IM ONETIME ONE - Assessment/Plan Last 24 Hours: My Active Orders 05/20/18 00:25 Benzonatate [Tessalon Perles] 200 mg PO ONETIME ONE Ketorolac [Toradol] 60 mg IM ONETIME ONE
== END 2018-05-20 01:01 | disposition home or self-care (01) ==
LOC: JP.ED 23:51
DX: J06.9 Acute upper respiratory infection, unspecified (principal); M54.31 Sciatica, right side; E66.9 Obesity, unspecified; E03.9 Hypothyroidism, unspecified; Z79.899 Other long term (current) drug therapy; F17.210 Nicotine dependence, cigarettes, uncomplicated; Z88.5 Allergy status to narcotic agent
CPT/HCPCS: 96372; 99283; A9270; J1885

== ENCOUNTER 2018-10-05 14:24 | Emergency (ER) | payer MEDICAID ==
[2018-10-05 14:55] VITALS: BP 139/82; PULSE 70
--- NOTE | 2018-10-05 15:30 | EDM.PDOC ---
ED HPI GENERAL MEDICAL PROBLEM - General Chief Complaint: Bite:Animal, Insect Stated Complaint: REACTION FROM BUG BITE Time Seen by Provider: 10/05/18 15:31 Source of Information: Reports: Patient History Limitations: Reports: No Limitations - History of Present Illness INITIAL COMMENTS - FREE TEXT/NARRATIVE: pt was bite by a deer fly and she developed swelling in the left eye area. When she got up this am her left eye was so swollen that she could bearly open the eye. She has taken benadryl twic. She is 26 weeks . Onset: Other ( she was bite yesterday. 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 carpal tunnel left Neurological History: Reports: Concussion Psychiatric History: Reports: Depression Endocrine/Metabolic History: Reports: Hypothyroidism, Obesity/BMI 30+ Oncologic (Cancer) History: Reports: Thyroid - Infectious Disease History Infectious Disease History: Reports: Chicken Pox - Past Surgical History Endocrine Surgical History: Reports: Thyroid Biopsy, Thyroidectomy Social & Family History - Family History Family Medical History: Noncontributory - Tobacco Use Smoking Status *Q: Unknown Ever Smoked - Caffeine Use Caffeine Use: Reports: None - Recreational Drug Use Recreational Drug Use: No - Living Situation & Occupation Living situation: Reports: , with Family (lives in housing behind the [employer]) Occupation: Employed ([employer]) ED ROS GENERAL - Review of Systems Review Of Systems: See Below Constitutional: Reports: No Symptoms HEENT: Reports: Other (pt has swelling around the left eye. No hives or other reaction) Respiratory: Reports: No Symptoms Cardiovascular: Reports: No Symptoms Endocrine: Reports: No Symptoms GI/Abdominal: Reports: No Symptoms : Reports: No Symptoms Musculoskeletal: Reports: No Symptoms ED EXAM, ANIMAL BITE - Physical Exam Exam: See Below Text/Narrative:: pt arrived with swelling in the left eye. This has gone down this pm. She has taken 2 doses of benadryl today. Exam Limited By: No Limitations General Appearance: Alert, No Apparent Distress, Other (pt has swelling above the left eye, no hives presen. ) Ears: Normal TMs Nose: Normal Inspection Throat/Mouth: Normal Inspection Course - Vital Signs Last Recorded V/S: Last Vital Signs Temp 37.1 C 10/05/18 14:59 Pulse 70 10/05/18 14:59 Resp 20 10/05/18 14:59 BP 139/82 10/05/18 14:59 Pulse Ox 99 10/05/18 14:59 Departure - Departure Time of Disposition: 15:28 Disposition: Home, Self-Care 01 Condition: Fair Clinical Impression: Allergic reaction - Discharge Information Referrals: PCP,None [Primary Care Provider] - Forms: ED Department Discharge Care Plan Goals: local allergic reaction caused by a bug bite-- use one more dose of benadryl this pm and stop the benadryl, cool pack to area
== END 2018-10-05 15:39 | disposition home or self-care (01) ==
LOC: JP.ED 14:24
DX: O9A.212 Injury, poisoning and certain other consequences of external causes complicating pregnancy, second trimester (principal); S00.262A Insect bite (nonvenomous) of left eyelid and periocular area, initial encounter; O99.282 Endocrine, nutritional and metabolic diseases complicating pregnancy, second trimester; E03.9 Hypothyroidism, unspecified; O99.212 Obesity complicating pregnancy, second trimester; Z88.5 Allergy status to narcotic agent; Z3A.26 26 weeks gestation of pregnancy; Z79.899 Other long term (current) drug therapy
CPT/HCPCS: 99282

== ENCOUNTER 2019-12-04 03:37 | Emergency (ER) | payer MEDICAID ==
[2019-12-04] MEDS ORDERED: propofoL 100 ML ONE (04:00)
== END 2019-12-04 04:45 ==
LOC: JP.ED 03:37 → MERGE 03:37 → JP.ED 04:45
DX: Z53.21 Procedure and treatment not carried out due to patient leaving prior to being seen by health care provider (principal)

== ENCOUNTER 2019-12-04 03:58 | Emergency (ER) | payer MEDICAID ==
[~2019-12-04 03:58] MED LIST: Naloxone 0.4 MG/ML SDV ONE; Succinylcholine 200 MG/10 ML MDV ONE
[2019-12-04] MEDS ORDERED: Succinylcholine 200 MG/10 ML MDV IV ONE (04:03)
[2019-12-04] MEDS ORDERED: Sodium Chloride 0.9% 1,000 ML IV SCH (04:15)
--- NOTE | 2019-12-04 04:25 | EDM.PDOC ---
ED HPI GENERAL MEDICAL PROBLEM - General Stated Complaint: MEDICAL [facility]IA [facility] Time Seen by Provider: 12/04/19 04:00 Source of Information: Reports: EMS History Limitations: Reports: Altered Mental Status, Physical Impairment - History of Present Illness INITIAL COMMENTS - FREE TEXT/NARRATIVE: 39-year-old female brought in at 3:45 AM in an unresponsive state. A nasal trumpet had been placed to aid with her breathing but she was breathing on her own and saturating in the 90s. She was bradycardic but normal blood pressure. No known trauma. A history of she had just taken a "handful" of Zanaflex. Unknown if this was a self injury attempt. No other history was available. 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 carpal tunnel left Neurological History: Reports: Concussion Psychiatric History: Reports: Depression Endocrine/Metabolic History: Reports: Hypothyroidism, Obesity/BMI 30+ Oncologic (Cancer) History: Reports: Thyroid - Infectious Disease History Infectious Disease History: Reports: Chicken Pox - Past Surgical History Endocrine Surgical History: Reports: Thyroid Biopsy, Thyroidectomy Social & Family History - Family History Family Medical History: Noncontributory - Caffeine Use Caffeine Use: Reports: None - Living Situation & Occupation Living situation: Reports: , with Family (lives in housing behind the [employer]) Occupation: Employed ([employer]) ED ROS GENERAL - Review of Systems Review Of Systems: See Below Reason Not Obtained: Patient is unresponsive, no review of systems obtainable ED EXAM, GENERAL - Physical Exam Exam: See Below Exam Limited By: Altered Mental Status (Initial Nai Coma Scale of 3) General Appearance: Obtunded Eye Exam: Bilateral Eye: Other (Bilateral pinpoint pupils, slight disconjugate gaze) Head: Atraumatic Respiratory/Chest: Lungs Clear Cardiovascular: Regular Rate, Rhythm, Bradycardia GI/Abdominal: Other (No involuntary guarding) Extremities: No: Pedal Edema Neurological: Unresponsive Skin Exam: Warm, Dry, Other (Small abrasion on the right forearm covered with a Band-Aid) Course - Vital Signs Last Recorded V/S: Last Vital Signs Temp 95.4 F L 12/04/19 03:58 Pulse 43 L 12/04/19 04:31 Resp 11 L 12/04/19 04:50 BP 159/105 H 12/04/19 04:50 Pulse Ox 100 12/04/19 04:50 - Orders/Labs/Meds Orders: Active Orders 24 hr Category Date Time Status CXR [Chest 1V Frontal] [CR] Stat Exams 12/04/19 04:41 Taken Desired Level of Sedation (RASS) [AST] Click to Edit Oth 12/04/19 04:31 Ordered Labs: Laboratory Tests 12/04/19 12/04/19 12/04/19 Range/Units 04:00 04:00 04:01 WBC 11.1 H (4.5-11.0) K/uL RBC 4.65 (3.30-5.50) M/uL Hgb 13.2 (12.0-15.0) g/dL Hct 40.1 (36.0-48.0) % MCV 86 (80-98) fL MCH 28 (27-31) pg MCHC 33 (32-36) % Plt Count 429 H (150-400) K/uL Neut % (Auto) 67 H (36-66) % Lymph % (Auto) 26 (24-44) % Powell % (Auto) 4 (2-6) % Eos % (Auto) 3 (2-4) % Baso % (Auto) 1 (0-1) % Sodium 139 L (140-148) mmol/L Potassium 4.0 (3.6-5.2) mmol/L Chloride 102 (100-108) mmol/L Carbon Dioxide 22 (21-32) mmol/L Anion Gap 19.0 H (5.0-14.0) mmol/L BUN 8 (7-18) mg/dL Creatinine 0.8 (0.6-1.0) mg/dL Est Cr Clr Drug Dosing TNP Estimated GFR (MDRD) > 60 (>60) Glucose 321 H (74-106) mg/dL Calcium 8.0 L (8.5-10.1) mg/dL Total Bilirubin 0.1 L (0.2-1.0) mg/dL AST 28 (15-37) U/L ALT 27 (12-78) U/L Alkaline Phosphatase 130 H (46-116) U/L Total Protein 7.4 (6.4-8.2) g/dL Albumin 3.3 L (3.4-5.0) g/dL Globulin 4.1 H (2.3-3.5) g/dL Albumin/Globulin Ratio 0.8 L (1.2-2.2) Urine Color Yellow (YELLOW) Urine Appearance Clear (CLEAR) Urine pH 6.0 (5.0-8.0) Ur Specific [place] 1.015 (1.008-1.030) Urine Protein Negative (NEGATIVE) mg/dL Urine Glucose (UA) 250 H (NEGATIVE) mg/dL Urine Ketones Negative (NEGATIVE) mg/dL Urine Occult Blood Large H (NEGATIVE) Urine Nitrite Negative (NEGATIVE) Urine Bilirubin Negative (NEGATIVE) Urine Urobilinogen 0.2 (0.2-1.0) EU/dL Ur Leukocyte Esterase Negative (NEGATIVE) Urine RBC 0-5 (0-5) Urine WBC 0-5 (0-5) Ur Epithelial Cells Few Amorphous Sediment Not seen Urine Bacteria Moderate Urine Mucus Not seen Salicylates (2.0-20.0) mg/dL Urine Opiates Screen (NEGATIVE) Ur Oxycodone Screen (NEGATIVE) Urine Methadone Screen (NEGATIVE) Ur Propoxyphene Screen (NEGATIVE) Acetaminophen (10.0-30.0) ug/mL Ur Barbiturates Screen (NEGATIVE) Ur Tricyclics Screen (NEGATIVE) Ur Phencyclidine Scrn (NEGATIVE) Ur Amphetamine Screen (NEGATIVE) U Methamphetamines Scrn (NEGATIVE) Urine MDMA Screen (NEGATIVE) U Benzodiazepines Scrn (NEGATIVE) U Cocaine Metab Screen (NEGATIVE) U Marijuana (THC) Screen (NEGATIVE) Ethyl Alcohol mg/dL 12/04/19 12/04/19 12/04/19 Range/Units 04:01 04:02 04:02 WBC (4.5-11.0) K/uL RBC (3.30-5.50) M/uL Hgb (12.0-15.0) g/dL Hct (36.0-48.0) % MCV (80-98) fL MCH (27-31) pg MCHC (32-36) % Plt Count (150-400) K/uL Neut % (Auto) (36-66) % Lymph % (Auto) (24-44) % Powell % (Auto) (2-6) % Eos % (Auto) (2-4) % Baso % (Auto) (0-1) % Sodium (140-148) mmol/L Potassium (3.6-5.2) mmol/L Chloride (100-108) mmol/L Carbon Dioxide (21-32) mmol/L Anion Gap (5.0-14.0) mmol/L BUN (7-18) mg/dL Creatinine (0.6-1.0) mg/dL Est Cr Clr Drug Dosing Estimated GFR (MDRD) (>60) Glucose (74-106) mg/dL Calcium (8.5-10.1) mg/dL Total Bilirubin (0.2-1.0) mg/dL AST (15-37) U/L ALT (12-78) U/L Alkaline Phosphatase (46-116) U/L Total Protein (6.4-8.2) g/dL Albumin (3.4-5.0) g/dL Globulin (2.3-3.5) g/dL Albumin/Globulin Ratio (1.2-2.2) Urine Color (YELLOW) Urine Appearance (CLEAR) Urine pH (5.0-8.0) Ur Specific [place] (1.008-1.030) Urine Protein (NEGATIVE) mg/dL Urine Glucose (UA) (NEGATIVE) mg/dL Urine Ketones (NEGATIVE) mg/dL Urine Occult Blood (NEGATIVE) Urine Nitrite (NEGATIVE) Urine Bilirubin (NEGATIVE) Urine Urobilinogen (0.2-1.0) EU/dL Ur Leukocyte Esterase (NEGATIVE) Urine RBC (0-5) Urine WBC (0-5) Ur Epithelial Cells Amorphous Sediment Urine Bacteria Urine Mucus Salicylates 4.5 (2.0-20.0) mg/dL Urine Opiates Screen Negative (NEGATIVE) Ur Oxycodone Screen Negative (NEGATIVE) Urine Methadone Screen Negative (NEGATIVE) Ur Propoxyphene Screen Negative (NEGATIVE) Acetaminophen 0.0 L (10.0-30.0) ug/mL Ur Barbiturates Screen Negative (NEGATIVE) Ur Tricyclics Screen Negative (NEGATIVE) Ur Phencyclidine Scrn Negative (NEGATIVE) Ur Amphetamine Screen Negative (NEGATIVE) U Methamphetamines Scrn Negative (NEGATIVE) Urine MDMA Screen Negative (NEGATIVE) U Benzodiazepines Scrn Negative (NEGATIVE) U Cocaine Metab Screen Negative (NEGATIVE) U Marijuana (THC) Screen Negative (NEGATIVE) Ethyl Alcohol mg/dL 12/04/19 Range/Units 04:02 WBC (4.5-11.0) K/uL RBC (3.30-5.50) M/uL Hgb (12.0-15.0) g/dL Hct (36.0-48.0) % MCV (80-98) fL MCH (27-31) pg MCHC (32-36) % Plt Count (150-400) K/uL Neut % (Auto) (36-66) % Lymph % (Auto) (24-44) % Powell % (Auto) (2-6) % Eos % (Auto) (2-4) % Baso % (Auto) (0-1) % Sodium (140-148) mmol/L Potassium (3.6-5.2) mmol/L Chloride (100-108) mmol/L Carbon Dioxide (21-32) mmol/L Anion Gap (5.0-14.0) mmol/L BUN (7-18) mg/dL Creatinine (0.6-1.0) mg/dL Est Cr Clr Drug Dosing Estimated GFR (MDRD) (>60) Glucose (74-106) mg/dL Calcium (8.5-10.1) mg/dL Total Bilirubin (0.2-1.0) mg/dL AST (15-37) U/L ALT (12-78) U/L Alkaline Phosphatase (46-116) U/L Total Protein (6.4-8.2) g/dL Albumin (3.4-5.0) g/dL Globulin (2.3-3.5) g/dL Albumin/Globulin Ratio (1.2-2.2) Urine Color (YELLOW) Urine Appearance (CLEAR) Urine pH (5.0-8.0) Ur Specific [place] (1.008-1.030) Urine Protein (NEGATIVE) mg/dL Urine Glucose (UA) (NEGATIVE) mg/dL Urine Ketones (NEGATIVE) mg/dL Urine Occult Blood (NEGATIVE) Urine Nitrite (NEGATIVE) Urine Bilirubin (NEGATIVE) Urine Urobilinogen (0.2-1.0) EU/dL Ur Leukocyte Esterase (NEGATIVE) Urine RBC (0-5) Urine WBC (0-5) Ur Epithelial Cells Amorphous Sediment Urine Bacteria Urine Mucus Salicylates (2.0-20.0) mg/dL Urine Opiates Screen (NEGATIVE) Ur Oxycodone Screen (NEGATIVE) Urine Methadone Screen (NEGATIVE) Ur Propoxyphene Screen (NEGATIVE) Acetaminophen (10.0-30.0) ug/mL Ur Barbiturates Screen (NEGATIVE) Ur Tricyclics Screen (NEGATIVE) Ur Phencyclidine Scrn (NEGATIVE) Ur Amphetamine Screen (NEGATIVE) U Methamphetamines Scrn (NEGATIVE) Urine MDMA Screen (NEGATIVE) U Benzodiazepines Scrn (NEGATIVE) U Cocaine Metab Screen (NEGATIVE) U Marijuana (THC) Screen (NEGATIVE) Ethyl Alcohol 184 mg/dL Meds: Medications Discontinued Medications Generic Name Dose Route Start Last Admin Trade Name Freq PRN Reason Stop Dose Admin Sodium Chloride 1,000 mls @ 1,000 mls/hr 12/04/19 04:15 12/04/19 03:58 Normal Saline IV 1,000 mls/hr ASDIRECTED DEANA Administration Propofol 100 mls @ 2.449 mls/hr 12/04/19 04:45 12/04/19 04:05 Diprivan 100 Ml IV 5 mcg/kg/min TITRATE DEANA 2.449 mls/hr Administration Protocol 5 MCG/KG/MIN Naloxone HCl 0.4 mg 12/04/19 04:32 12/04/19 03:58 Narcan IVPUSH 0.4 mg ONETIME PRN Administration Oversedation Succinylcholine Chloride 150 mg 12/04/19 04:03 12/04/19 03:58 Quelicin IV 12/04/19 04:04 150 mg ONETIME ONE Administration - Re-Assessments/Exams Free Text/Narrative Re-Assessment/Exam: 12/04/19 04:22 Patient was checked for a gag reflex and had none. Patient was given 0.4 mg of IV Narcan without response. Decision was made then to intubate. A second IV was started, 1 L normal saline hung and bolused. With assistance of glide scope, a 7.0 initially ET tube was placed, confirmed by CO2 detector and monitor. A 1 view chest x-ray confirmed proper placement. When intubation was attempted, she did react and became slightly combative, Glascow score increased to 5 she had some moaning sounds and nonpurposeful movement. 150 mg of succinylcholine was then given IV prior to the tube placement. Blood was drawn for CBC, CMP, EtOH, salicylates and acetaminophen. A phone call was made to Dr. Wylie, hospitalist at [facility] and he asked for CT the head prior to transport. After intubation she started waking up and becoming somewhat combative so she was started on a propofol drip. 12/04/19 04:26 Acetaminophen is 0, alcohol 0.184. Rest of her labs were generally reassuring, salicylates 4.5. 12/04/19 04:37 Rest of her urine drug screen is negative. Glucose 321. 12/04/19 04:[address] looks normal, formal report will be added to the chart when available. Patient remained sedated on propofol and stable. Vicente was placed. Patient was stable when discharged. Total critical care time was 1 hour. 12/04/19 06:17 IMPRESSION: No evidence of an acute intracranial hemorrhage, mass effect or loss of park- white differentiation. Mild right maxillary sinus disease. Departure - Departure Time of Disposition: 05:00 Disposition: DC/[facility]fer to [facility] 02 Clinical Impression: Acute drug overdose Qualifiers: Encounter type: initial encounter Injury intent: undetermined intent Qualified Code(s): T50.904A - Poisoning by unspecified drugs, medicaments and biological substances, undetermined, initial encounter Alcohol intoxication Qualifiers: Complication of substance-induced condition: with unspecified complication Qualified Code(s): F10.929 - Alcohol use, unspecified with intoxication, unspecified - Discharge Information Referrals: PCP,None [Primary Care Provider] - Forms: ED Department Discharge Care Plan Goals: Patient was urgently transferred by air to [facility] for intensive care treatment as we had no intensive care beds available. Critical Care Note - Critical Care Note Total Time (mins): 60 Sepsis Event Note (ED) - Focused Exam Vital Signs: Vital Signs Temp Pulse Resp BP Pulse Ox 12/04/19 04:50 11 L 159/105 H 100 12/04/19 04:31 43 L 14 173/98 H 100 12/04/19 04:28 44 L 13 159/103 H 100 12/04/19 04:08 48 L 12 162/105 H 100 12/04/19 04:00 58 L 188/118 H 12/04/19 03:58 95.4 F L 43 L 8 L 145/106 H - My Orders Last 24 Hours: My Active Orders 12/04/19 04:31 Desired Level of Sedation (RASS) [AST] Click to Edit 12/04/19 04:41 CXR [Chest 1V Frontal] [CR] Stat - Assessment/Plan Last 24 Hours: My Active Orders 12/04/19 04:31 Desired Level of Sedation (RASS) [AST] Click to Edit 12/04/19 04:41 CXR [Chest 1V Frontal] [CR] Stat
[2019-12-04] MEDS ORDERED: Naloxone 0.4 MG/ML SDV IVPUSH PRN (04:32)
[2019-12-04] MEDS ORDERED: propofoL 100 ML IV SCH (04:45)
[2019-12-04 04:51] VITALS: BP 159/105; PULSE 43
--- NOTE | 2019-12-04 05:09 | CRLCT ---
INDICATION: Unresponsive TECHNIQUE: CT head without contrast. COMPARISON: None available FINDINGS: The ventricles and sulci are within normal limits. There is no mass effect or midline shift. There is no loss of park-white differentiation. There is no evidence of an acute intracranial hemorrhage. Physiologic ganglionic calcifications are seen. No acute calvarial fracture is seen. There is mild right maxillary sinus mucosal thickening. The mastoid air cells are clear. The visualized orbits are within normal limits. IMPRESSION: No evidence of an acute intracranial hemorrhage, mass effect or loss of park-white differentiation. Mild right maxillary sinus disease. Dictated by Armando Bowser MD @ 12/04/2019 5:08:13 AM Please note that all CT scans at this facility use dose modulation, iterative reconstruction, and/or weight-based dosing when appropriate to reduce radiation dose to as low as reasonably achievable. Dictated by: Armando Bowser MD @ 12/04/2019 05:08:19 (Electronically Signed)
--- NOTE | 2019-12-04 08:56 | CR ---
CHEST: Portable 12/04/2019 at 4:07 AM CLINICAL HISTORY:Intubation COMPARISON:None FINDINGS: Patient has diffuse bilateral pulmonary infiltrates. Pulmonary vascularity is obscured. Endotracheal tube is been placed. It is approximately 2 cm in the dayana. Heart size is normal. Impression: Endotracheal tube is in good position Diffuse bilateral pulmonary infiltrates of uncertain etiology.
== END 2019-12-04 04:50 ==
LOC: JP.ED 03:58
DX: T42.8X2A Poisoning by antiparkinsonism drugs and other central muscle-tone depressants, intentional self-harm, initial encounter (principal); F10.129 Alcohol abuse with intoxication, unspecified; E03.9 Hypothyroidism, unspecified; Z79.899 Other long term (current) drug therapy; E66.9 Obesity, unspecified; Z68.28 Body mass index [BMI] 28.0-28.9, adult; Z88.5 Allergy status to narcotic agent
CPT/HCPCS: 31500; 36415; 51702; 70450; 71045; 80053; 80305; 80307; 81001; 85025; 96361; 99285; J0330; J2310; J2704; J7030; 96374; 96375